=== PATIENT | male | born 1940 | race Caucasian/White ===

== ENCOUNTER 2017-01-01 06:20 | Inpatient (IN) | payer MEDICARE ==
--- NOTE | 2016-12-18 13:39 | Rehab Joint Replacement Pre-Op ---
Rehab Joint Replacement Pre-Op - Pre-Op Visit Reviewed Items Scheduled for Post Op Visit: Yes Scheduled Post Op Visit Date: 01/05/17 Pre-Op Visit Comment: Lives in ranch style house with two to three steps into home. Has bathroom already set-up with raised commode, small step into shower, shower chair, rails in bathroom to hold for transfers. Only thing have to move is rug in bathroom. Gabe Hose/Garment Measure THR - Thigh High: Yes Exercise Reviewed: Yes Stair Climbing: Yes Cane/Walker/Crutch Training: Yes Vend Equipment - Cane or Walker and OT Kit: N/A List of Venders in the Area: No Shower Chair Transfers: Yes Car Transfers: Yes Bed Transfers: Yes Medical History Forms Issued: Yes Functional Scale Forms Issued: Yes
[~2017-01-01 06:20] MED LIST: ACETAMINOPHEN 1000MG/100 ML PREMIX IV ONE; CEFAZOLIN 2 Gram 50 ML IVPB ONE; FAMOTIDINE 20MG TABLET PO ONE; MECLIZINE 25 MG TABLET PO ONE; METOCLOPRAMIDE 10 MG TABLET PO ONE
[2017-01-01] MEDS ORDERED: SENNOSIDES/DOCUSATE SODIUM UD CAPSULE PO PRN (10:15)
[2017-01-01] MEDS ORDERED: HYDROMORPHONE HCL 1 MG/ML CPJ IVP PRN (10:15)
[2017-01-01] MEDS ORDERED: DIPHENHYDRAMINE HCL 25 MG CAPSULE PO PRN (10:15)
[2017-01-01] MEDS ORDERED: ONDANSETRON HCL IV 4 MG/2 ML VIAL IVP PRN (10:15)
[2017-01-01] MEDS ORDERED: OXYCODONE HCL 5 MG TABLET PO PRN (10:15)
[2017-01-01] MEDS ORDERED: MAGNESIUM HYDROXIDE 30 ML UDC PO PRN (10:15)
[2017-01-01] MEDS ORDERED: AL HYDROX/MAG HYDROX 30ML UD PO PRN (10:15)
[2017-01-01] MEDS ORDERED: METOCLOPRAMIDE HCL 10 MG/2 ML VIAL IVP PRN (10:15)
[2017-01-01] MEDS ORDERED: ZOLPIDEM TARTRATE 5 MG TABLET PO PRN (10:15)
[2017-01-01] MEDS: RINGERS SOLUTION,LACTATED 1,000 ML IV SCH (10:41)
[2017-01-01] MEDS: OXYCODONE HCL 5 MG TABLET PO PRN (11:18)
[2017-01-01] MEDS ORDERED: HYDROMORPHONE HCL 2 MG/ML VIAL IV ONE ×2 (13:56→14:00)
[2017-01-01] MEDS ORDERED: MIDAZOLAM HCL 2MG/2ML VIAL IV ONE (14:00)
[2017-01-01] MEDS ORDERED: ONDANSETRON HCL IV 4 MG/2 ML VIAL IVP ONE (14:00)
[2017-01-01] MEDS ORDERED: KETOROLAC 30 MG/ML VIAL IVP ONE (14:00)
[2017-01-01] MEDS ORDERED: LIDOCAINE 2% MDV (20MG/ML) 20ML VIAL IV ONE (14:00)
[2017-01-01] MEDS ORDERED: SEVOFLURANE 250 ML INH ONE (14:00)
[2017-01-01] MEDS ORDERED: PROPOFOL 10 MG/ML VIAL IV ONE (14:00)
[2017-01-01] MEDS ORDERED: ATROPINE SULFATE 0.4 MG/ML 20ML IVP ONE (14:00)
[2017-01-01] MEDS ORDERED: EPHEDRINE SULFATE 50 MG/ML ML IV ONE (14:00)
[2017-01-01] MEDS ORDERED: NEOSTIGMINE 1 MG/1 ML,10ML VIAL IV ONE (14:00)
[2017-01-01] MEDS ORDERED: GLYCOPYRROLATE 0.2 MG/ML ML IV ONE (14:00)
[2017-01-01] MEDS ORDERED: FENTANYL PF 0.25MG/5ML AMPUL IV ONE (14:00)
[2017-01-01] MEDS ORDERED: ROCURONIUM BROMIDE 50MG/5ML VIAL IV ONE (14:00)
[2017-01-01] MEDS: ACETAMINOPHEN 1,000 MG/100 ML BTL IV SCH ×2 (14:22→20:25)
[2017-01-01] MEDS: CEFAZOLIN 2 Gram 2 GM/50 ML BAG IVPB SCH ×2 (15:00→23:40)
--- NOTE | 2017-01-01 17:14 | Rehab Evaluation ---
Patient Information - Patient Information Diagnosis: Left DB seconary to O-A Ordered Treatment: PT Evaluate and Treat Status: Initial Evaluation Surgery: Yes ([facility] 01/01/17 AM) History: Detail (Pt reports long standing Hx of L hip pain secondary to O-A. Pt also has a Hx of LBP surgery.) Past Med/Minor Hx Detail: Detail Past Medical/Surgical Hx: PAST MEDICAL/SURGICAL HISTORY Past Surgical History lower lumbar surgery c scope PMH - Respiratory Hx Respiratory Disorders Yes Hx Pneumonia Yes: 1959's PMH - Cardiovascular Hx Cardiovascular Disorders Yes Hx Hypertension Yes: on meds good control Hx Irregular Heartbeat Yes: episode of a fib 15 years ago started meds no reoccurance Hx Rheumatic Fever Yes: at age 11 Hx Heart Murmur Yes: as a teenager Exercise Tolerance Fair PMH - Neuro Hx Neurological Disorders Yes Hx Dizziness Yes: occass more of a balance issue Hx Headaches Yes: occass PMH - GI Hx Gastrointestinal Disorders Yes Hx Gastroesophageal Reflux Yes PMH - Hx Genitourinary Disorders Yes Hx Bladder Problem Yes: urine frequency PMH - Endocrine Hx Endocrine Disorders No PMH - Musculoskeletal Hx Musculoskeletal Disorders Yes Hx Arthritis Yes: left hip and generalized PMH - Psych Hx Psychiatric Problems Yes Hx Anxiety Yes: about surgery Hx Depression Yes: mild due to limited mobility due to hip PMH - Hematology/Oncology Hx Hematology/Oncology Yes Disorders Hx Anemia Yes: in past Premorbid Status: Detail (Mobility limitations secondary to O-A.) Social History: Detail (Lives in single family home with 2 steps to enter.All living areas on first floor. step over lip shower,has shower bench, raised toilet seat, hand held shower, and walker.) Precautions: [place], Fall, Other (Pt instructed in DB precautions.) - Time With Patient Total Time Spent With Patient (Min): 55 Treatment Procedures: Detail (Evaluation, education in precautions for DB, HEP , Transfers, bed mobility, short distance ambulation.) Subjective Information - Subjective Information Per Patient (Pt reports feeling pretty good for just having surgery.) Objective Data - Pain Pain Present: Yes (minor the pain meds are helping much.) Pain Intensity: 1 Pain Scale Used: Numeric (1 - 10) - Mental Status Patient Orientation: Oriented x3 - Visual Perception Appears within normal limits for therapeutic activities - ROM Other (U&LE ROM WNLS EXCEPT L hip limited secondary to DB today.) - Strength/Tone Other (U&LE strength is +4to5/5 throughout except Lhip is limited but no MMT done secondary to surgery.) - Coordination Deficit (Deficit only in LLE due to surgery.) - Bed Mobility Needs Assist (assist with LLE.) - Transfers Needs Assist (Pt did need assist due to did not have walker, in trunk of car.) - Balance Balance Sitting: Good Balance Standing: Fair (needs walker.) - Sensation Intact - Gait Detail (not assisted yet, no walker.) - Special Tests No Therapy Assessment - Therapy Assessment Detail (Pt did very well for first session following surgery( DB Left). performed all HEP as requested, and bed mobility went as expected. transfers & ambulation will go better with walker.) Patient Education - Patient Education Teaching Topic: Equipment Use, Exercise/Activity, Precautions, Risk Factors Response: Return Demonstration, Verbalize Understanding Teaching Method: Discussion, Demonstration, Handout Teaching Recipient: Patient Problem List - Problem List Physical Therapy Problem List: Detail (Dependent mobility secondary to LTHA, all areas ( bed, transfer, ambulation).) Goals - Goals Physical Therapy Goals: Independent with HEP, bed mobility, transfers,and ambulation using a walker (2wheel or standard) household distances, and stairs ( 2), and demonstrates good understanding of hip precautions in preparation for discharge home. Prognosis - Prognosis Good Plan - Plan Physical Therapy Plan: Pt to be seen 1-2 x per day until goals met or discharge to outpatient PT.
[2017-01-01] MEDS: SOTALOL 80 MG PO SCH (23:34)
[2017-01-01] MEDS: ASPIRIN 325 MG TAB ENTERIC-COATED PO SCH (23:35)
[2017-01-02] MEDS: ACETAMINOPHEN 1,000 MG/100 ML BTL IV SCH (05:30)
[2017-01-02] MEDS: RINGERS SOLUTION,LACTATED 1,000 ML IV SCH (05:31)
[2017-01-02] MEDS: CEFAZOLIN 2 Gram 2 GM/50 ML BAG IVPB SCH (06:41)
[2017-01-02 07:06] LABS: HEMATOCRIT 24.8 % (42.0-52.0); MEAN CELL VOLUME 101.2 fl (81-97); MEAN CORPUSCULAR HGB CONC 33.9 g/dl (32-36); MEAN PLATELET VOLUME 9.8 fl (7.4-10.4); PLATELET COUNT 168 K/uL (130-400); RED BLOOD COUNT 2.45 M/uL (4.40-5.70); RED CELL DISTRIBUTION WIDTH 12.9 % (11.5-14.5); WHITE BLOOD COUNT W/O DIFF 6.9 K/uL (4.2-12.2)
[2017-01-02 07:16] LABS: MEAN CORPUSCULAR HEMOGLOBIN 34.2 pg (27-33)
[2017-01-02 07:17] LABS: HEMOGLOBIN 8.4 gm/dl (14.0-18.0)
[2017-01-02] MEDS: PATIENT OWN MED: FAMOTIDINE 20 MG PO SCH (08:26)
[2017-01-02] MEDS: LISINOPRIL PO SCH (09:32)
[2017-01-02] MEDS: HCTZ PO SCH (09:32)
[2017-01-02] MEDS: ASPIRIN 325 MG TAB ENTERIC-COATED PO SCH ×2 (09:32→21:41)
[2017-01-02] MEDS: SOTALOL 80 MG PO SCH ×2 (09:33→21:41)
[2017-01-02] MEDS: OXYCODONE HCL 5 MG TABLET PO PRN (09:45)
[2017-01-02] MEDS ORDERED: OXYCODONE/APAP 7.5MG/325MG TABLET PO PRN ×2 (10:15)
[2017-01-02] MEDS ORDERED: HYDROCODONE/APAP 7.5/325MG TABLET PO PRN (10:15)
[2017-01-02] MEDS ORDERED: ACETAMINOPHEN 325 MG TAB PO PRN (10:15)
--- NOTE | 2017-01-02 10:50 | Physical Therapy Tx Note ---
Physical Therapy Tx Note - Treatment Note Tolerated: Good (Patient a little slow with ambulation but may be due to his back more than hip bothering him using FWW. Able to ambulate about 50 feet in patel and back to room with FWW, CGA and several stops for rest standing.) Total Time Spent With Patient: 30 Physical Therapy Tx Note: Detail (Patient seen in room, sitting up in chair. Sit to stand with verbal cues after warmed up leg with marching steps seated, LAQ and ankle pumps. Reviewed hip precautions also and patient understood well. Patient able to ambulate with FWW and CGA in patel about 50 feet with WBAT left, walker may be a little tall secondary to patient leans fwd and has done so for some time because of back issues. Assisted patient back into bed with slight assist with left LE and to get straight in bed then re-attached cryopads at calves, returned tray table beside bed and call light close.) Physical Therapy Problem List: Detail (Dependent mobility secondary to LTHA, all areas ( bed, transfer, ambulation).) Physical Therapy Goals: Independent with HEP, bed mobility, transfers,and ambulation using a walker (2wheel or standard) household distances, and stairs ( 2), and demonstrates good understanding of hip precautions in preparation for discharge home. Prognosis: Good (Patient doing very well today, says pain controlled and visiting with family when left. Have not tried stairs yet: will do that this afternoon.) Physical Therapy Plan: Pt to be seen 1-2 x per day until goals met or discharge to outpatient PT.
--- NOTE | 2017-01-02 12:28 | Rehab Evaluation ---
Patient Information - Patient Information Diagnosis: Left DB secondary to O-A Ordered Treatment: OT Evaluate and Treat Status: Initial Evaluation Surgery: Yes ([facility] 01/01/17 ) History: Detail (Pt reports long standing Hx of L hip pain secondary to O-A. Pt also has a Hx of LBP surgery.) Past Medical/Surgical Hx: PAST MEDICAL/SURGICAL HISTORY Past Surgical History lower lumbar surgery c scope PMH - Respiratory Hx Respiratory Disorders Yes Hx Pneumonia Yes: 1959's PMH - Cardiovascular Hx Cardiovascular Disorders Yes Hx Hypertension Yes: on meds good control Hx Irregular Heartbeat Yes: episode of a fib 15 years ago started meds no reoccurance Hx Rheumatic Fever Yes: at age 11 Hx Heart Murmur Yes: as a teenager Exercise Tolerance Fair PMH - Neuro Hx Neurological Disorders Yes Hx Dizziness Yes: occass more of a balance issue Hx Headaches Yes: occass PMH - GI Hx Gastrointestinal Disorders Yes Hx Gastroesophageal Reflux Yes PMH - Hx Genitourinary Disorders Yes Hx Bladder Problem Yes: urine frequency PMH - Endocrine Hx Endocrine Disorders No PMH - Musculoskeletal Hx Musculoskeletal Disorders Yes Hx Arthritis Yes: left hip and generalized PMH - Psych Hx Psychiatric Problems Yes Hx Anxiety Yes: about surgery Hx Depression Yes: mild due to limited mobility due to hip PMH - Hematology/Oncology Hx Hematology/Oncology Yes Disorders Hx Anemia Yes: in past Premorbid Status: Detail (Mobility limitations secondary to O-A.) Social History: Detail (Pt lives with spouse in a 1 story house with 3 steps and 1 handrailing at the entrance. He has a walk in shower with a seat and grab bar but he prefers standing to shower. He has a standard toilet with a toilet riser. He and share home mgmt, meal prep and performs laundry. He has a 2 wheeled walker and a cane.) Precautions: [place], Fall, Other (Pt instructed in DB precautions.) - Time With Patient Total Time Spent With Patient (Min): 45 Treatment Procedures: Detail (OT eval low complexity) Subjective Information - Subjective Information Per Patient Objective Data - Pain Pain Present: No (Pt reports no pain at rest. He does have increased pain when moving left leg.) - Mental Status Patient Orientation: Oriented x3 - Visual Perception Appears within normal limits for therapeutic activities (Pt wears glasses.) - ROM Within normal limits (Last UE AROM WNL per observation.) - Strength/Tone Within normal limits (Last UE strength WNL per observation.) - Coordination Appears within normal limits for therapeutic activities - Bed Mobility Needs Assist (Min assist for supine to sit and for sit to supine.) - Transfers Independent - Balance Balance Sitting: Good Balance Standing: Good - Sensation Intact - ADL's/IADL's Detail (Pt and spouse educated re: telecommunicator supervisor, sock aid, long shoe horn and modified dressing technique with DB precautions. Pt able to demonstrate donning of underpants, PJ bottoms and slippers with use of adaptive equipment and while maintaining hip precautions. Pt purchased hip kit for home use.) Therapy Assessment - Therapy Assessment Detail (Pt Ind with LE dressing, demonstrates understanding of DB precautions.) Problem List - Problem List Physical Therapy Problem List: Detail (Dependent mobility secondary to LTHA, all areas ( bed, transfer, ambulation).) Occupational Therapy Problem List: Detail (No OT problems identified at this time.) Goals - Goals Physical Therapy Goals: Independent with HEP, bed mobility, transfers,and ambulation using a walker (2wheel or standard) household distances, and stairs ( 2), and demonstrates good understanding of hip precautions in preparation for discharge home. Occupational Therapy Goals: No current OT goals identified at this time. Prognosis - Prognosis Good Plan - Plan Physical Therapy Plan: Pt to be seen 1-2 x per day until goals met or discharge to outpatient PT. Occupational Therapy Plan: No further OT needed at this time. Thank you for this referral.
--- NOTE | 2017-01-02 13:40 | Operative Note ---
DATE OF SURGERY: 01/01/2017 Surgeon: Octaviano Dimas D.O. REFERRING PHYSICIAN: JACQUELINE Bailon PREOPERATIVE DIAGNOSIS: Primary osteoarthritis of the left hip. POSTOPERATIVE DIAGNOSIS: Primary osteoarthritis of the left hip. OPERATION: Left total hip arthroplasty. PROCEDURE: This 76-year-old male was taken to the Operating Room and placed in the supine position on the operating room table. General anesthesia was induced and the patient was placed in the right lateral decubitus position, all bony prominences padded, the head well supported, bolstered perpendicular to the floor. All scrubbed personnel wore personal isolation suits. A lateral hip incision was made dissecting down through the skin and subcutaneous tissue. Hemostasis obtained with electrocautery. The tensor was divided in line with a skin incision. The gluteus maximum was split and self- retaining hip retractor was placed. Short rotators divided from the posterior aspect of the hip and Steinmann pins were used as retractors were placed, 1 superiorly, 1 posterosuperiorly, and 1 posteroinferiorly for excellent exposure of the acetabulum. The niels was made on the greater trochanter and this was measured to the proximal pin and this length was restored at the completion of the procedure. The head was dislocated and the neck amputated and subsequently Kober retractor was placed anteriorly and the soft tissue debris in the labrum was removed from the acetabulum for excellent exposure to the bone. We then reamed in 1 mm increments from a 48 to a size 52 mm to the base of the cotyloid notch. The trial component was placed. This was seen to be the appropriate size. Subsequently, a size 52 mm Trident cup was impacted into place and this was found by an insertion of the trial liner. We then directed our attention to the proximal femur and the box osteotome was used to cut the proximal femur and a wood stock blank handler was then passed down the shaft , followed by the 5 mm reamer in an alternating ream-broach technique. The 6 broach was countersunk and the calcar reamer used. Subsequently, a 7 and then finally an 8 broach was seated fully with excellent fit and trial reduction was accomplished. A +0 head was seen to be the appropriate size for protestant of anatomic length. The hip was taken through range of motion with excellent stability, wide abduction and external rotation, flexion to 110, internal rotation to about 70 degrees. No instability being identified. The hip was then dislocated and all trial components were removed. The wound copiously irrigated with pulse lavage, lactated Ringer solution. An X3 36 mm liner was impacted into place. A size 8 collared femoral component impacted into place followed by the insertion of a 36 mm LFIT head. The hip was then again reduced and again taken through range of motion and found to be stable. We then repaired the short rotators to the posterior aspect of the greater trochanter utilizing drill holes and a #5 Ethibond suture. Once this had been satisfactorily repaired, the drain was placed through a separate stab incision and the gluteus and tensor was closed with #2 Vicryl, the subcutaneous tissue closed with 0 Vicryl, the skin was stapled and sterile dressings applied. The patient was taken to the Recovery Room in satisfactory condition. GROSS PATHOLOGY: This patient demonstrated severe osteoarthritis of the femoral head, mild osteophyte formation was present inferiorly which was removed. FINAL COMPONENTS INSERTED: David size 8 collared secure-fit femoral component , a 52 mm Trident cup, a 52 mm X3 liner was used, a 36 mm interior diameter and a 36 mm +0 LFIT head was used. [facility]
[2017-01-02] MEDS: HYDROCODONE/APAP 7.5/325MG TABLET PO PRN (14:40)
--- NOTE | 2017-01-02 16:47 | Physical Therapy Tx Note ---
Physical Therapy Tx Note - Treatment Note Tolerated: Fair (Pt. had a difficult time understanding directions regarding bed mobility and stair use.) Total Time Spent With Patient: 60 Physical Therapy Tx Note: Detail (Pt. required moderate assistance x1 with bed mobility and required constant verbal cueing to attempt to sit upright; pt. unable to assume a long sitting position and exhibited poor use of upper extremities with bed mobility. Pt. ambulated ~30 feet with front wheeled walker I, but required verbal and tactile cueing to appropriately position the walker on the steps when ascending and descending 3 steps. Pt. is not independent with bed mobility and stair use and is unsafe to return home and perform these tasks independently.) Physical Therapy Problem List: Detail (Dependent mobility secondary to LTHA, all areas ( bed, transfer, ambulation).) Physical Therapy Goals: Independent with HEP, bed mobility, transfers,and ambulation using a walker (2wheel or standard) household distances, and stairs ( 2), and demonstrates good understanding of hip precautions in preparation for discharge home. Physical Therapy Plan: Pt to be seen 1-2 x per day until goals met or discharge to outpatient PT.
[2017-01-03] MEDS: HYDROCODONE/APAP 7.5/325MG TABLET PO PRN (05:59)
[2017-01-03] MEDS: PATIENT OWN MED: FAMOTIDINE 20 MG PO SCH (06:08)
[2017-01-03 06:24] LABS: HEMATOCRIT 25.7 % (42.0-52.0); HEMOGLOBIN 8.8 gm/dl (14.0-18.0); MEAN CORPUSCULAR HEMOGLOBIN 34.2 pg (27-33); MEAN CORPUSCULAR HGB CONC 34.2 g/dl (32-36); MEAN PLATELET VOLUME 9.4 fl (7.4-10.4); PLATELET COUNT 241 K/uL (130-400); RED BLOOD COUNT 2.57 M/uL (4.40-5.70); RED CELL DISTRIBUTION WIDTH 12.7 % (11.5-14.5); WHITE BLOOD COUNT W/O DIFF 10.9 K/uL (4.2-12.2)
[2017-01-03] MEDS: SOTALOL 80 MG PO SCH (10:00)
[2017-01-03] MEDS: LISINOPRIL PO SCH ×2 (10:00→14:29)
[2017-01-03] MEDS: HCTZ PO SCH ×2 (10:00→14:29)
[2017-01-03] MEDS: ASPIRIN 325 MG TAB ENTERIC-COATED PO SCH (10:00)
--- NOTE | 2017-01-03 12:17 | Physical Therapy Tx Note ---
Physical Therapy Tx Note - Treatment Note Tolerated: Good Total Time Spent With Patient: 40 Physical Therapy Tx Note: Detail (Patient states minimal complaints of pain in left hip. Patient transferred supine to sit independently using strap minimally to lift left LE. Patient transferred sit to and from stand SBA x1. Patient ambulated 13 feet with wheeled walker SBA x1. Patient transferred sit to and from stand SBA x1. Patient ambulated 50 feet with wheeled walker SBA x1. Patient ascended and descended 3 steps CGA x1. Patient ambulated 65 feet with wheeled walker SBA x1. Patient performed the following exercises x10 reps each: seated marching, LAQ, seated hip abduction with strap, seated isometric hip adduction, seated toe raises, seated heel raises, and glut squeezes. Patient transferred sit to and from stand SBA x1. Patient ambulated 13 feet SBA x1. Patient transferred sit to and from stand SBA x1. Patient tolerated treatment well. Patient reports good understanding of HEP and hip precautions. Patient was left seated in chair with call light within reach. Patient has completed all physical therapy goals at this time. Patient is to be discharged to [facility] and outpatient therapy.) Physical Therapy Problem List: Detail (Dependent mobility secondary to LTHA, all areas ( bed, transfer, ambulation).) Physical Therapy Goals: Independent with HEP, bed mobility, transfers,and ambulation using a walker (2wheel or standard) household distances, and stairs ( 2), and demonstrates good understanding of hip precautions in preparation for discharge home. Prognosis: Good Physical Therapy Plan: Pt to be seen 1-2 x per day until goals met or discharge to outpatient PT.
--- NOTE | 2017-01-05 07:11 | RADIOLOGY REPORT ---
EXAM: LEFT HIP HISTORY: POSTOP LEFT HIP ARTHROPLASTY FOR DEGENERATIVE ARTHRITIS. TECHNIQUE: AP and lateral views of the left hip were obtained. Comparison: Left hip series 12/04/16. FINDINGS: Since the prior exam a left DB has been performed. The components appear in good position. Some air is seen in the soft tissues which is presumably postoperative in nature. Skin type william laterally. There is probably a drain in place. IMPRESSION: POSTOP LEFT DB WITH GOOD ALIGNMENT. J[facility] NUMBER: [id number] [facility]
== END 2017-01-03 15:45 | disposition home or self-care (01) | DRG 470 ==
LOC: MEDSURG 06:20
PROVIDERS: ADMIT Orthopaedic Surgery; ATTEND Orthopaedic Surgery
PROC: 0SRB04A Replacement of Left Hip Joint with Ceramic on Polyethylene Synthetic Substitute, Uncemented, Open Approach (ICD-10-PCS; principal; 2017-01-01 08:00)
DX: M16.12 Unilateral primary osteoarthritis, left hip (principal); I10 Essential (primary) hypertension
CPT/HCPCS: 85025; 97110; 97116; 97165; 97530; C1776; J1885; J2405; J2710; J7120

== ENCOUNTER 2017-12-08 11:55 | Emergency (ER) | payer MEDICARE ==
--- NOTE | 2017-12-08 12:05 | Emergency Department Record ---
History of Present Illness - General Chief Complaint: Abdominal Pain Stated Complaint: ABD PAIN Time Seen by Provider: 12/08/17 11:58 Source: Patient, Family Mode of Arrival: Ambulatory Limitations: No limitations - History of Present Illness Initial Comments: 77 yo male presents with the gradual onset of lower abdominal pain for 3 days. He has had some decrease in appetite. No vomiting. He had one loose stool earlier today. The pain goes across the abdomen and he feels the pain in the back. No fever. No blood in the stools. He has a history of diverticulitis about 8 years ago. He had his last colonoscopy 8 years ago. PCP is Maya Sheth. No abdominal surgery history. MD Complaint: Abdominal pain -: Days(s) Location: LLQ, RLQ Radiation: Back, LLQ, RLQ Migration to: LLQ, RLQ Severity: Moderate Quality: Aching Consistency: Constant Improves With: Rest Worsens With: Movement Context: Other Associated Symptoms: Dysuria - Related Data Previous Rx's Medication Instructions Recorded Amoxicillin/Potassium Clav 1 tab PO BID #14 tablet 12/08/17 [Augmentin 875Mg/125Mg] Allergies Allergy/AdvReac Type Severity Reaction Status Date / Time No Known Drug Allergies Allergy Verified 12/08/17 11:57 Review of Systems Constitutional: Denies: Chills, Fever, Malaise, Weakness Eyes: Denies: Eye discharge ENT: Denies: Congestion, Throat pain Respiratory: Denies: Cough, Dyspnea Cardiovascular: Denies: Chest pain, Palpitations, Syncope Endocrine: Denies: Fatigue Gastrointestinal: Reports: Abdominal pain, Nausea. Denies: Diarrhea, Hematemesis, Hematochezia, Vomiting Genitourinary: Reports: Frequency, Urgency. Denies: Hematuria, Incontinence, Retention, Testicular mass Musculoskeletal: Reports: Back pain. Denies: Arthralgia, Myalgia Skin: Denies: Bruising, Change in color, Rash Neurological: Denies: Headache, Numbness, Weakness Psychiatric: Denies: Anxiety Hematological/Lymphatic: Denies: Blood Clots, Easy bleeding, Easy bruising, Swollen glands Past Medical History - SOCIAL HISTORY Smoking Status: Former smoker Drug Use: None - RESPIRATORY Hx Respiratory Disorders: Yes Hx Pneumonia: Yes () - CARDIOVASCULAR Hx Cardio Disorders: Yes Hx Hypertension: Yes (on meds good control) Hx Irregular Heartbeat: Yes (episode of a fib 15 years ago started meds no reoccurance) - NEURO Hx Neuro Disorders: Yes Hx Dizziness: Yes (occass more of a balance issue) Hx Headaches: Yes (occass) - GI Hx GI Disorders: Yes Hx Reflux: Yes - Hx Genitourinary Disorders: Yes Hx Bladder Problem: Yes (urine frequency) - ENDOCRINE Hx Endocrine Disorders: No - MUSCULOSKELETAL Hx Musculoskeletal Disorders: Yes Hx Arthritis: Yes (left hip and generalized) - PSYCH Hx Psych Problems: Yes Hx Anxiety: Yes (about surgery) Hx Depression: Yes (mild due to limited mobility due to hip) - HEMATOLOGY/ONCOLOGY Hx Hematology/Oncology Disorders: Yes Hx Anemia: Yes (in past) Family Medical History Hx Cancer: Brother/Sister Hx Diabetes: Mother, Brother/Sister Physical Exam - General General Appearance: Alert, Oriented x3, Cooperative, No acute distress Limitations: No limitations - Head Head exam: Normal inspection - Eye Eye exam: Normal appearance, PERRL. negative: Conjunctival injection, Scleral icterus - ENT ENT exam: Normal exam, Mucous membranes moist Ear exam: Normal external inspection Nasal Exam: Normal inspection Mouth exam: Normal external inspection Teeth exam: Normal inspection Throat exam: Normal inspection - Neck Neck exam: Normal inspection, Full ROM. negative: Tenderness - Respiratory Respiratory exam: Normal lung sounds bilaterally. negative: Respiratory distress, Rhonchi, Stridor, Wheezes - Cardiovascular Cardiovascular Exam: Regular rate, Normal rhythm, Normal heart sounds - GI/Abdominal GI/Abdominal exam: Soft, Tenderness (very soft abdomen, mild tenderness across the lower abdomen but soft). negative: Distended, Guarding, Rebound, Rigid - Rectal Rectal exam: Deferred - exam: Deferred - Extremities Extremities exam: Normal inspection, Full ROM, Normal capillary refill. negative: Tenderness - Back Back exam: Reports: Normal inspection, Full ROM. Denies: Muscle spasm, Rash noted, Tenderness - Neurological Neurological exam: Alert, Normal gait, Oriented X3 - Psychiatric Psychiatric exam: Normal affect, Normal mood - Skin Skin exam: Dry, Intact, Normal color, Warm Course - Reevaluation(s) Reevaluation #1: 12/08/17 12:26 The CBC was reviewed. The WBC is 17.9 His Hgb is 11.3 (on review he has chronic anemia) 12/08/17 13:08 Creatinine is 1.8 (this is near his baseline with past range 1.3 to 1.9) CT changed to oral only to avoid IV contrast 12/08/17 13:09 I notified radiology (Sara) tulio of change to ME CT scan 12/08/17 14:[address] is consistent with uncomplicated diverticulitis. No free air, free fluid or abscess. Pulmonary nodule noted. He was informed of the results as well as the recommendation for recheck of both findings including the nodule 12/08/17 15:18 The patient is doing well with controlled pain, no fever, no vomiting He is a good outpatient candidate We discussed close follow up and reasons to return to the ED for recheck He is on Sotolol so Cipro and Levaquin are contraindicated. Rx for Augmentin was provided. 12/08/17 15:30 The patient's PCP was contacted and she made a follow up appointment with the patient while in the ED. 12/08/17 16:22 Medical Decision Making - Lab Data Result diagrams: 12/08/17 12:05 12/08/17 12:05 Disposition Disposition: Discharge Clinical Impression: Diverticulitis Disposition: Home, Self-Care Condition: (1) Good Instructions: Diverticulitis (ED) Additional Instructions: Call your doctor for recheck of your symptoms this week Return to the ER if you have fevers, vomiting, uncontrolled pain, or any new concerns Take the antibiotic until gone. Liquid diet the next 5-7 days mostly Prescriptions: Amoxicillin/Potassium Clav [Augmentin 875Mg/125Mg] 1 tab PO BID #14 tablet Forms: Patient Portal Access Time of Disposition: 15:03 Quality - Quality Measures Quality Measures: N/A - Blood Pressure Screening Does Patient Have Any of the Following: Active Dx of HTN Blood Pressure Classification: Pre-Hypertensive BP Reading Systolic Measurement: 122 Diastolic Measurement: 69 Screening for High Blood Pressure: Patient Exclusion, Hx of HTN [G9744]
[2017-12-08 12:12] LABS: URINE APPEARANCE CLEAR; URINE BILIRUBIN NEGATIVE (NEGATIVE); URINE BLOOD NEGATIVE (NEGATIVE); URINE COLOR YELLOW; URINE GLUCOSE (UA) NEGATIVE (NEGATIVE); URINE KETONE NEGATIVE (NEGATIVE); URINE LEUKOCYTE ESTERASE NEGATIVE (NEGATIVE); URINE NITRITE NEGATIVE (NEGATIVE); URINE PROTEIN NEGATIVE (NEGATIVE); URINE UROBILINOGEN 0.2 E.U./dL (0.20 - 1.00)
[2017-12-08 12:14] LABS: BASO % 0.2 % (0-6); EOS % 0.2 % (0-6); GRAN % 76.4 % (47-80); HEMATOCRIT 34.1 % (42.0-52.0); HEMOGLOBIN 11.3 gm/dl (14.0-18.0); LYMPH % 12.8 % (16-45); MEAN CELL VOLUME 102.7 fl (81-97); MEAN CORPUSCULAR HGB CONC 33.1 g/dl (32-36); MEAN PLATELET VOLUME 9.4 fl (7.4-10.4); MONO % 10.4 % (0-9); PLATELET COUNT 306 K/uL (130-400); RED BLOOD COUNT 3.32 M/uL (4.40-5.70); RED CELL DISTRIBUTION WIDTH 13.1 % (11.5-14.5); WHITE BLOOD COUNT W/O DIFF 17.9 K/uL (4.2-12.2)
[2017-12-08] MEDS: 0.9 % SODIUM CHLORIDE 1,000 ML BAG IV ONE (12:16)
[2017-12-08] MEDS: ACETAMINOPHEN 1,000 MG/100 ML BTL IVPB ONE (12:16)
[2017-12-08 12:23] LABS: BILIRUBIN,TOTAL 1.3 mg/dL (0.2-1.0); CREATININE 1.8 mg/dL (0.7-1.2); TOTAL PROTEIN 7.4 g/dL (6.6-8.7)
[2017-12-08 12:28] LABS: ALB/GLOB RATIO 1.3 (1.1-1.8); ALBUMIN 4.2 g/dL (4.0-5.0)
[2017-12-08] MEDS ORDERED: METRONIDAZOLE 250 MG TABLET PO ONE (14:57)
[2017-12-08] MEDS: AMOXICILLIN/POTASSIUM CLAV 875MG/125MG TABLET PO ONE (15:31)
--- NOTE | 2017-12-09 08:31 | CT SCAN REPORT ---
EXAM: CT OF THE ABDOMEN AND PELVIS WITHOUT CONTRAST HISTORY: ABDOMINAL PAIN. TECHNIQUE: CT of the abdomen and pelvis was performed following oral contrast administration only. Lack of IV contrast limits evaluation of solid visceral organs. Comparison: None. FINDINGS: Limited evaluation of the lung bases demonstrates an 8 mm nodule in the posterior right lung base. This could be followed nonemergently with CT chest. There is also a 4 mm nodule in the left lung base. The osseous structures are grossly intact. Small hiatal hernia. Limited evaluation of the liver, spleen, adrenal glands, pancreas, and kidneys is unremarkable. The gallbladder is present. Moderate atheromatous change. No evidence for bowel obstruction. Normal appendix. Sigmoid diverticulosis. Minor surrounding inflammatory changes with bowel wall thickening consistent with diverticulitis. Recommend follow-up to insure resolution. No discreet abscess or free air. No free fluid. Subjective wall thickening of the urinary bladder. Streak artifact from the patient's left hip prosthesis limits portions of the pelvis. IMPRESSION: 1. ACUTE SIGMOID DIVERTICULITIS. NO DISCREET ABSCESS, FREE AIR OR FREE FLUID. CONTINUED FOLLOW-UP RECOMMENDED. 2. SMALL HIATAL HERNIA. 3. PULMONARY NODULES IN EACH LUNG BASE. CONSIDER FOLLOW-UP WITH NONEMERGENT CT CHEST. JOB NUMBER: [id number] [facility]
== END 2017-12-08 15:20 | disposition home or self-care (01) ==
LOC: ER 11:55
DX: K57.92 Diverticulitis of intestine, part unspecified, without perforation or abscess without bleeding (principal); R30.0 Dysuria; I10 Essential (primary) hypertension; Z87.891 Personal history of nicotine dependence
CPT/HCPCS: 74176; 80053; 81003; 83690; 85025; 96365; 99284; J7030